=== PATIENT | female | born 1970 | race Caucasian/White ===

== ENCOUNTER 2016-10-29 06:38 | Day surgery (SDC) | payer BC ==
[2016-10-29] VITALS (7 sets, daily range): BP systolic 101–129; BP diastolic 57–65; PULSE 70–104; RESP 12–19; Ht 162.6 cm; Wt 80.9 kg
[~2016-10-29] VITALS: Ht 162.6 cm; Wt 80.9 kg
[~2016-10-29 06:38] MED LIST: LACTATED RINGER'S 1,000 ML IV* SCH
[2016-10-29 07:40] LABS: ADD UMIC YES; URINE BILIRUBIN (Dip) NEGATIVE (NEGATIVE); URINE BLOOD (Dip) 3+ (NEGATIVE); URINE COLOR LT. YELLOW (YELLOW); URINE GLUCOSE (Dip) NEGATIVE (NEGATIVE); URINE KETONES (Dip) NEGATIVE (NEGATIVE); URINE LEUKOCYTE ESTERASE (Dip) TRACE (NEGATIVE); URINE NITRITE (Dip) NEGATIVE (NEGATIVE); URINE TOTAL PROTEIN (Dip) NEGATIVE (NEGATIVE); URINE UROBILINOGEN (Dip) 0.2 E.U./dL (0.1-1.0)
[2016-10-29 08:24] LABS: BACTERIA,URINE OCCASIONAL
--- NOTE | 2016-10-29 08:26 | HPN ---
Date/Time of Note Date/Time of Note DATE: 10/29/16 TIME: 08:25 Interval H&P Admission Note Pt. seen H&P reviewed: No system changes JUAN CARLOS ARRINGTON MD Oct 29, 2016 08:26
[2016-10-29] MEDS ORDERED: FENTAnyl 50 MCG/ML VIAL ONE ×2 (08:32→08:44)
[2016-10-29] MEDS ORDERED: MIDAZOLAM 1 MG/ML 2 ML INJ ONE (08:32)
[2016-10-29] MEDS ORDERED: PROPOFOL 100 ML ONE (08:41)
[2016-10-29] MEDS ORDERED: LIDOCAINE 2% (SDV) 5 ML INJ ONE ×2 (08:44→09:18)
[2016-10-29] MEDS ORDERED: LABETALOL HCL 20MG INJ ONE (09:15)
[2016-10-29] MEDS ORDERED: PROPOFOL 20 ML ONE (09:18)
[2016-10-29] MEDS ORDERED: CEFAZOLIN 1 GM INJ ONE (09:19)
[2016-10-29] MEDS ORDERED: ONDANSETRON 4 MG INJ ONE ×2 (09:19→09:21)
[2016-10-29] MEDS ORDERED: DEXAMETHASONE 4 MG/ML 1 ML INJ ONE (09:20)
[2016-10-29] MEDS ORDERED: METOCLOPRAMIDE 10 MG INJ IV PRN (09:30)
[2016-10-29] MEDS ORDERED: HYDROmorphONE (0.2 MG/ML) 10ML SYG IV PRN ×2 (09:30)
[2016-10-29] MEDS ORDERED: MEPERIDINE 25 MG INJ IV PRN (09:30)
[2016-10-29] MEDS ORDERED: DIPHENHYDRAMINE 50 MG INJ IV PRN (09:30)
[2016-10-29] MEDS ORDERED: ONDANSETRON 4 MG INJ IV PRN (09:30)
[2016-10-29] MEDS ORDERED: FENTAnyl 50 MCG/ML VIAL IV PRN (09:30)
[2016-10-29] MEDS ORDERED: SUCCINYLCHOLINE CHLORIDE 100 MG/5 ML SYG IV ONE (09:38)
--- NOTE | 2016-10-29 09:49 | PD.PPDC ---
[facility] Discharge Instruction Diagnosis Final Diagnosis: uterine fibroid intramural, menometrorrhagia Diet Diet: Resume Regular Diet Activity/Restrictions Activity: May Shower Restrictions: No Sexual Activity Nothing in the Vagina No Kite No Tampons, douche Follow-up Follow-up with Physician: 4, Week/Weeks Return to clinic for [facility] AGENT Instructions: Fever greater than 101 Chills Worsening abdominal pain Excessive Vaginal Bleeding More than 2 pads per hour Unable to tolerate diet JUAN CARLOS ARRINGTON MD Oct 29, 2016 09:49
[2016-10-29] MEDS ORDERED: OXYCODONE/ACETAMINOPHEN (5/325) TAB PO ONE (11:00)
[2016-10-29] MEDS ORDERED: ONDANSETRON 4 MG INJ IV STA (11:43)
[2016-10-29] MEDS ORDERED: METOCLOPRAMIDE 10 MG INJ IV ONE (12:00)
--- NOTE | 2016-11-02 13:12 | OPR ---
DATE OF OPERATION: 10/29/2016 PREOPERATIVE DIAGNOSES: Menometrorrhagia, uterine fibroids, intramural. POSTOPERATIVE DIAGNOSES: Menometrorrhagia, uterine fibroids, intramural. OPERATION PERFORMED: Hysteroscope, endometrial ablation, hydrothermal ablation. ANESTHESIA: General. ANESTHESIOLOGIST: Refer to the chart. SURGEON: Monica Lofton MD [employer]UT[employer] CONSULTANT: Jonathan from [employer]. DESCRIPTION OF PROCEDURE: Under the proper induction of general anesthesia, the patient was placed in dorsal lithotomy position. Perineal area and vaginal wall were prepped and draped in usual asept ic manner. The bladder was emptied with a Vargas catheter, obtaining a large amount of urine. After the comp lete usual setting up with hysteroscope ablation kit, which was connected to the normal saline, and after the complete setting up, the cut set was connected to the hysteroscope. Prior to the removal of the cap of the hysteroscope, bimanual examination done. Uterus was felt to be approximately 10 w eeks of gestational size form and consistency. There was no palpable adnexal pathology. A weighted speculum was introduced, and cervix identified. The anterior cervix was clear and anterior lip of t he cervix was grasped with a single tooth tenaculum and the cervix was dilated up to 8 size Hegar di lator. The cap of the hysteroscope was removed and the hysteroscopy initiated. Entered the cervica l os and advanced the hysteroscope with distension of the cavity with normal saline gradually and it reached the point where both ostia were seen and these were clearly seen. The fundus was located. At the leakage check was done. There was no leak confirmed and the procedure was initiated. Riley rature was going up into the 80s and the endometrial ablation was started. After 10 minutes of abla tion and 2 minutes of cooling, the uterine cavity and rechecked. The procedure was completed and th e hysteroscope was removed from the operative field. Fluid deficit was minimal. During the procedure, intermittently the picture was taken underway out and the cervical canal was visualized, which was intact. Dictated By: MONICA WARD/NIDIA Conf#: [id number] DID#: [id number]
== END 2016-10-29 12:55 | disposition home or self-care (01) ==
LOC: SDS 06:38
PROVIDERS: ATTEND Obstetrics & Gynecology
DX: N92.1 Excessive and frequent menstruation with irregular cycle (principal); D25.9 Leiomyoma of uterus, unspecified
CPT/HCPCS: 58563; 81001; J0330; J0690; J1100; J1170; J2250; J2405; J2765; J3010; Z7512; Z7610; 81003